=== PATIENT | female | born 1940 | race Two or more races ===

== ENCOUNTER → 2016-12-19 | Outpatient (CLI) | payer MEDICARE, BC ==
--- NOTE | 2016-12-20 10:30 | BD ---
EXAMINATION TYPE: MG DEXA axial skeleton. DATE OF EXAM: 12/19/2016 COMPARISON: NONE CLINICAL HISTORY: Z38.0 POST MENOPAUSAL W/O HRT Height: 62.5 Weight: 142 FRAX RISK QUESTIONS: Alcohol (3 or more units per day): NO Family History (Parent hip fracture): NO Glucocorticoids (More than 3mos): NO (Ex: prednisone, prednisolone, methylprednisolone, dexamethasone, and hydrocortisone). History of Fracture in Adulthood: NO Secondary Osteoporosis: NO 1. Type 1 Diabetes: NO 2. Hyperthyroidism: NO 3. Menopause before 45: YES 4. Malnutrition: NO 5. Chronic liver disease: NO Rheumatoid Arthritis: NO Current Tobacco Use: NO RISK FACTORS HISTORY OF: Family History of Osteoporosis: NONE KNOWN Active: YES Diet low in dairy products/other sources of calcium: NO Postmenopausal woman: COMPLETE HYST. AT 29 YRS OLD Lost more than 2 inches in height since high school: NO Hyperparathyroidism: NO Adrenal Insufficiency: NO MEDICATIONS: Additional Medications: MULTIVITAMIN, AND PURE COCOA, REMICADE INFUSION Additional History: LT TKR 4 MOS AGO, ARTHRITIS EXAM MEASUREMENTS: Bone mineral densitometry was performed using the [employer] System. Bone mineral density as measured about the Lumbar spine is: ----- L1-L4(G/cm2): 0.980 T Score Values are as follows: ----- L1: -3.1 ----- L2: -1.8 ----- L3: -1.3 ----- L4: -1.0 ----- L1-L4: -1.7 Bone mineral density THIS IS HER FIRST BONE DENSITY STUDY WITH [facility] Bone mineral density about the R hip (g/cm2): 0.768 Bone mineral density about the L hip (g/cm2): 0.720 T Score values are as follows: -----R Neck: -1.9 -----L Neck: -1.8 -----R Total: -1.9 -----L Total: -2.3 Bone mineral density THIS IS THE FIRST BONE DENSITY TEST FOR HER AT [facility] FRAX %'S: THERE IS A 12.7% CHANCE OF A MAJOR OSTEOPOROTIC FX AND A 3.1% CHANCE FOR HIP FX.....PRO BABILITY IN 10/YRS TIME IMPRESSION: Osteopenia (T Score between -2.5 and -1 as noted by T score values in the low back overall and bilate ral hips. There is slightly increased risk of fracture and the patient may be considered for treatmen t. Re-Screen 2-5 years. NOTE: T-SCORE=SD OF THE YOUNG ADULT MEAN.
== END | disposition home or self-care (01) ==
LOC: RADBDWWP 12:52
PROVIDERS: ATTEND Family Medicine
DX: M85.89 Other specified disorders of bone density and structure, multiple sites (principal); Z78.0 Asymptomatic menopausal state
CPT/HCPCS: 77080

== ENCOUNTER → 2016-12-20 | Day surgery (SDC) | payer MEDICARE, BC ==
[2016-12-20 07:21] VITALS: RESP 16; TEMP 97.8; BMI 24.4
--- NOTE | 2016-12-20 08:56 | USB ---
EXAMINATION TYPE: US breast aspiration single RT DATE OF EXAM: 12/20/2016 CLINICAL HISTORY: N63 Breast mass. TECHNIQUE: Ultrasound guided core biopsy of right breast. COMPARISON: Mammogram [facility], ultrasound report [facility]. FINDINGS: The procedure of ultrasound guided core biopsy was explained to the patient. Benefits, alt ernatives, and risks were discussed. An informed consent was then obtained. The patient was placed in supine positioning for imaging and for the procedure. The overlying skin w as prepped and draped in usual sterile fashion. Lidocaine was used as anesthetic into the skin and s ubcutaneous tissue up to area of concern in the right breast. Under ultrasound guidance, an 18-gauge needle was advanced into the hypoechoic lesion at the 8:00 pos ition and cyst aspiration was performed. Following this, a biopsy clip was left in lesion. No solid lesion for biopsy was identified. This area appears to correspond to the description in prior reports . The patient tolerated the procedure well without any immediate complication. The patient was kept in the radiology department for short stay after the procedure and then discharged home in stable condi tion. Post procedure mammogram was obtained for clip placement. IMPRESSION: 1. Successful, uncomplicated ultrasound guided cyst aspiration 8:00 right breast with clip placement. Recommendations: 1. Recommendations are pending pathology results.
[2016-12-20 09:18] VITALS: BP 139/80; PULSE 77
== END ==
LOC: RADUSWWP 06:43
PROVIDERS: ATTEND Surgery
DX: N60.01 Solitary cyst of right breast (principal)
CPT/HCPCS: 88108; 76942; 19000; G0206; A4648; J2001

== ENCOUNTER → 2017-10-20 | Outpatient (CLI) | payer MEDICARE, BC ==
--- NOTE | 2017-10-20 10:26 | USB ---
Reason for exam: clinical finding. History: Benign US breast aspiration single RT of the right breast, December 20, 2016. Physical Findings: Nurse Summary: all soft, nodular, movable (nurse ts). US Breast RT Right complete breast ultrasound includes all four quadrants, the retroareolar region and axilla. Finding demonstrates a 0.5 x 0.3 x 0.7cm oval, cystic lesion at 8 o'clock, stable and was aspirated. These results were verbally communicated with the patient and result sheet given to the patient on 10/20/17. ASSESSMENT: Benign, BI-RAD 2 RECOMMENDATION: Routine screening mammogram of both breasts. (due now for mammogram)
== END | disposition home or self-care (01) ==
LOC: RADUSWWP 09:25
PROVIDERS: ATTEND Family Medicine
DX: R92.8 Other abnormal and inconclusive findings on diagnostic imaging of breast (principal)

== ENCOUNTER → 2017-11-06 | Outpatient (CLI) | payer MEDICARE, BC ==
--- NOTE | 2017-11-15 14:16 | MM ---
Reason for exam: screening (asymptomatic). Last mammogram was performed 11 months ago. History: Patient is postmenopausal and is nulliparous. Benign US breast aspiration single RT of the right breast, December 20, 2016. Physical Findings: A clinical breast exam by your physician is recommended on an annual basis and results should be correlated with mammographic findings. MG 3D Screening Mammo W/Cad Bilateral CC and MLO view(s) were taken. Prior study comparison: December 20, 2016, right breast MG diagnostic mammo RT wo CAD. The breast tissue is heterogeneously dense. This may lower the sensitivity of mammography. Finding: There are typically benign vascular, round calcifications in the right breast. Previous mammotome biopsy in the right breast. There is no discrete abnormality. ASSESSMENT: Benign, BI-RAD 2 RECOMMENDATION: Routine screening mammogram of both breasts in 1 year.
== END | disposition home or self-care (01) ==
LOC: RADMAMWWP 16:12
PROVIDERS: ATTEND Family Medicine
DX: Z12.31 Encounter for screening mammogram for malignant neoplasm of breast (principal)
CPT/HCPCS: 77063; 77067